=== PATIENT | male | born 1980 | race Caucasian/White ===

== ENCOUNTER 2023-11-27 12:13 | Emergency (ER) | payer BC, SELFPAY ==
[2023-11-27] VITALS (19 sets, daily range): BP systolic 104–144; BP diastolic 65–94; PULSE 64–80; RESP 20; TEMP 36; O2SAT 93–98
--- NOTE | 2023-11-27 12:47 | ED_ITS ---
HPI - General Adult General Chief complaint: Chest Pain Stated complaint: Chest pain Time Seen by Provider: 11/27/23 12:47 History of Present Illness HPI narrative: Pt here for persistent chest pain that began at 1130. The most intense pain lasted about 20 min and now has persisted as a pressure in the R side w / radiation into the R arm. No cardiac hx. Was in a meeting at work when it began 43-year-old man presenting to the emergency department with concern of chest pa in. It is a pressure beginning about an hour prior to presentation here. Seems to radiate into the arm? He gestures to his left chest as area of the pressure. No shortness of breath. May actually have gotten little bit better when he went to lay down when worse when he was up walking around. Recalls a history of similar pain with negative cardiac evaluation in the past. May have had echocar diogram as a part of this evaluation. Reportedly thought was that it was related to stress/anxiety. There was no trauma. Is not having any leg pain or swelling. Pain is not pleuritic. No sense of palpitations described. Related Data Allergies Allergy/AdvReac Type Severity Reaction Status Date / Time amoxicillin Allergy Mild Verified 11/27/23 12:35 Review of Systems Status of ROS: Reports: 6 or more systems reviewed and unremarkable except as noted in History and below PFSH PFS Social History Smoking Status: Never smoker Do you use any of these nicotine containing products: None Second hand tobacco smoke exposure: No How often do you have a drink containing alcohol: monthly or less How many standard drinks containing alcohol do you have on a typical day: 1 or 2 How often do you have six or more drinks on one occasion: Never AUDIT-C Alcohol total score: 1 Non-prescribed substance use: denies use Exam Narrative: Exam Narrative: Pleasant. larger man, tall. Breathing easily. Brow is furrowed as if concerned. Is breathing easily. I am not able to reproduce area of discomfort to palpation. Lungs appear to be clear. No supraclavicular crepitus. Heart in regular rate and rhythm without murmur rub or gallop. Abdomen is soft a little overweight nontender. Extremities are without edema. Well-perfused. Negative Homans. Skin is warm dry without apparent rash. Const: Vital Signs, click to edit/add: Vital Signs - 24 hr 11/27/23 12:31 11/27/23 12:46 11/27/23 13:00 Temperature 96.8 F L Pulse Rate 68 70 Pulse Rate [Pulse Oximeter] 64 Respiratory Rate 20 Blood Pressure Blood Pressure [Ri ght Forearm] 144/94 H Pulse Oximetry 97 94 94 Oxygen Delivery Me thod Room Air 11/27/23 13:02 11/27/23 13:15 11/27/23 13:30 Temperature Pulse Rate 71 76 73 Pulse Rate [Pulse Oximeter] Respiratory Rate Blood Pressure 120/78 Blood Pressure [Ri ght Forearm] Pulse Oximetry 94 96 94 Oxygen Delivery Me thod 11/27/23 13:45 11/27/23 14:00 11/27/23 14:02 Temperature Pulse Rate 80 73 73 Pulse Rate [Pulse Oximeter] Respiratory Rate Blood Pressure 104/65 Blood Pressure [Ri ght Forearm] Pulse Oximetry 98 93 95 Oxygen Delivery Me thod 11/27/23 14:03 11/27/23 14:15 11/27/23 14:30 Temperature Pulse Rate 71 69 76 Pulse Rate [Pulse Oximeter] Respiratory Rate Blood Pressure Blood Pressure [Ri ght Forearm] Pulse Oximetry 95 95 96 Oxygen Delivery Me thod 11/27/23 14:32 11/27/23 14:45 11/27/23 15:00 Temperature Pulse Rate 69 68 70 Pulse Rate [Pulse Oximeter] Respiratory Rate Blood Pressure 116/73 Blood Pressure [Ri ght Forearm] Pulse Oximetry 95 96 94 Oxygen Delivery Me thod 11/27/23 15:02 11/27/23 15:15 11/27/23 15:30 Temperature Pulse Rate 71 76 68 Pulse Rate [Pulse Oximeter] Respiratory Rate Blood Pressure 119/73 Blood Pressure [Ri ght Forearm] Pulse Oximetry 93 94 95 Oxygen Delivery Me thod 11/27/23 15:32 11/27/23 15:32 Temperature Pulse Rate 70 70 Pulse Rate [Pulse Oximeter] Respiratory Rate Blood Pressure 113/81 113/81 Blood Pressure [Ri ght Forearm] Pulse Oximetry 96 96 Oxygen Delivery Me thod Documenting provider has reviewed patient's vital signs: yes Course Vital Signs Vital signs: Initial Vital Signs Temperature 96.8 F L 11/27/23 12:31 Temperature Source Temporal Artery Scan 11/27/23 12:31 Pulse Rate 64 11/27/23 12:31 Pulse Rhythm Regular 11/27/23 12:31 Respiratory Rate 20 11/27/23 12:31 Blood Pressure 144/94 H 11/27/23 12:31 Blood Pressure Mean 110 H 11/27/23 12:31 Blood Pressure Position Supine 11/27/23 12:31 Pulse Oximetry 97 11/27/23 12:31 Oxygen Delivery Method Room Air 11/27/23 12:31 Vital Signs Temperature 96.8 F L 11/27/23 12:31 Pulse Rate 64 11/27/23 12:31 Respiratory Rate 20 11/27/23 12:31 Blood Pressure 144/94 H 11/27/23 12:31 Pulse Oximetry 97 11/27/23 12:31 Oxygen Delivery Method Room Air 11/27/23 12:31 Temperature 96.8 F L 11/27/23 12:31 Pulse Rate 70 11/27/23 15:32 Respiratory Rate 20 11/27/23 12:31 Blood Pressure 113/81 11/27/23 15:32 Pulse Oximetry 96 11/27/23 15:32 Oxygen Delivery Method Room Air 11/27/23 12:31 Medical Decision Making MDM Narrative Medical decision making narrative: Does not typically struggle with GERD but this remains in differential with maybe some esophageal spasming. Otherwise evaluate for ACS, possible dissection, pneumothorax or pneumomediastinum. Suspect anxiety playing a role. Pericarditis Monitor on cafeteria monitor and oximetry. he does not want anything for pain at this time. EKG normal as below. Chest x-ray reviewed by me looks to be without pneumothorax or infiltrate and with normal cardiac silhouette. Over time in the emergency department discomfort has faded. Did briefly have right leg cramp. This was not a persistent pain or swelling perhaps more consistent with DVT Labs are normal including repeat troponin. See patient discharge plan Lab Data Lab results reviewed: Yes I reviewed the patient's lab results Labs: Lab Results 11/27/23 11/27/23 11/27/23 Range/Units 13:34 13:38 15:00 WBC 7.19 (4.50-11.00) K/uL RBC 4.80 (4.30-5.90) m/uL Hgb 14.1 (13.5-17.5) gm/dL Hct 40.7 (37.0-53.0) % MCV 85 (80-100) fL MCH 29 (26-34) pg MCHC 35 (32-36) gm/dL RDW Coeff of Ian 12.1 (11.5-15.5) % Plt Count 185 (140-440) K/uL Neut % (Auto) 58.3 (42.0-72.0) % Lymph % (Auto) 28.9 (20-44) % Izard % (Auto) 9.0 (0.0-11.0) % Eos % (Auto) 3.1 (0.0-7.0) % Baso % (Auto) 0.3 (0.0-3.0) % Neut # (Auto) 4.19 (1.7-7.0) K/uL Lymph # (Auto) 2.10 (0.90-2.90) K/uL Izard # (Auto) 0.65 (0.00-0.90) K/UL Eos # (Auto) 0.22 (0.00-0.50) K/uL Baso # (Auto) 0.02 (0.00-0.30) K/uL Abs Immat Gran (auto) 0.03 (0.00-0.30) K/uL Imm/Tot Granulo (auto) 0.4 % D-Dimer Quant (PE/DVT) 0.18 (0.00-0.50) ug/ml Sodium 140 (135-149) mmol/L Potassium 4.1 (3.6-5.1) mmol/L Chloride 104 (96-114) mmol/L Carbon Dioxide 27 (20-32) mmol/L Anion Gap 9 (7-15) mEq/L BUN 21 (5-24) mg/dL Creatinine 1.2 (0.5-1.5) mg/dL Estimated GFR 78 ml/min Glucose 101 (60-115) mg/dL Calcium 9.5 (8.4-10.6) mg/dL Troponin I < 0.01 L (0.01-0.04) ng/mL NT-Pro-B Natriuret Pep < 20 pg/mL POC Troponin I 0.00 L 0.00 L (0.01-0.04) ng/ml ECG Data Attestation: I personally reviewed and interpreted this ECG as follows: (Normal sinus rhythm at 66 without ischemic changes) Discharge Plan Discharge Clinical Impression: Atypical chest pain Patient Disposition: Home w/ Parent or Adult Condition: Improved Additional Instructions: Everything looked good here during the time that we watched you. Blood pressure is really quite good at this point. Normal labs and EKG. I guess at this point I would follow-up in clinic for potential further evaluation. Should this return, you are welcome to come back to this department for repeat evaluation. Follow Up/Referrals: Provider,Not a Local [Primary Care Provider] - Stand Alone Forms: [employer] Instructions
--- NOTE | 2023-11-27 13:24 | CRLHL7_ITS ---
For Patients: As a result of the Century Cures Act, medical imaging exams and procedure reports are released immediately into your electronic medical record. You may view this report before your referring provider. If you have questions, please contact your health care provider. INDICATION: Left-sided midchest pain. TECHNIQUE: Chest 1 views. COMPARISON: None. FINDINGS: Cardiovasculature and mediastinum: Heart size and vasculature are normal in caliber and appearance. Lungs and pleural spaces: Lungs are clear. No sign of infiltrate or mass. No sign of pleural effusion. No pneumothorax. Bones and soft tissues: No significant findings. IMPRESSION: No acute or significant findings. Dictated by Tulio Rosas MD @ 11/27/2023 2:15:06 PM (Electronically Signed)
[2023-11-27 14:00] LABS: Basophils Absolute Auto 0.02 K/uL (0.00-0.30); Basophils Percent Auto 0.3 % (0.0-3.0); Eosinophils Absolute Auto 0.22 K/uL (0.00-0.50); Eosinophils Percent Auto 3.1 % (0.0-7.0); Hematocrit 40.7 % (37.0-53.0); Hemoglobin* 14.1 gm/dL (13.5-17.5); Immature Granulocytes Abs Auto 0.03 K/uL (0.00-0.30); Immature Granulocytes Pct Auto 0.4 %; Lymphocytes Percent Auto 28.9 % (20-44); Mean Corpuscular HGB Conc 35 gm/dL (32-36); Mean Corpuscular Hemoglobin 29 pg (26-34); Mean Corpuscular Volume 85 fL (80-100); Monocytes Absolute Auto 0.65 K/UL (0.00-0.90); Neutrophils Absolute Auto 4.19 K/uL (1.7-7.0); Neutrophils Percent Auto 58.3 % (42.0-72.0); Platelet Count* 185 K/uL (140-440); RDW Coefficient of Variation % 12.1 % (11.5-15.5); Slide Review Reflex No; White Blood Count* 7.19 K/uL (4.50-11.00)
[2023-11-27 14:01] LABS: Chloride* 104 mmol/L (96-114); Potassium* 4.1 mmol/L (3.6-5.1); Sodium* 140 mmol/L (135-149)
[2023-11-27 14:03] LABS: Creatinine* 1.2 mg/dL (0.5-1.5); Estimated Glomerular Filt Rate 78 ml/min
[2023-11-27 14:04] LABS: Anion Gap 9 mEq/L (7-15); Blood Urea Nitrogen* 21 mg/dL (5-24); Calcium* 9.5 mg/dL (8.4-10.6); Carbon Dioxide* 27 mmol/L (20-32); Glucose* 101 mg/dL (60-115)
[2023-11-27 14:13] LABS: D Dimer Quantitative* 0.18 ug/ml (0.00-0.50)
[2023-11-27 14:18] LABS: NT Pro B Type NatriureticPept* < 20 pg/mL; Troponin I* < 0.01 ng/mL (0.01-0.04)
== END 2023-11-27 15:41 | disposition home or self-care (01) ==
PROVIDERS: Emergency Provider Family Medicine
DX: R07.89 Other chest pain (principal)
CPT/HCPCS: 36415; 71045; 80048; 83880; 84484; 85025; 85379; 93005; 99284